=== PATIENT | female | born 2000 | race Caucasian/White ===

== ENCOUNTER → 2023-07-23 | Outpatient (REF) | payer OTHER | LOC: M SFHCCLAY 10:10 | PROVIDERS: ATTEND Nurse Practitioner Family | DX: E03.9 Hypothyroidism, unspecified (principal); I67.1 Cerebral aneurysm, nonruptured ==

== ENCOUNTER → 2024-10-03 | Outpatient (REF) | payer BC ==
[2024-10-03 17:21] LABS: ALT/SGPT 22 U/L (7.0-40); AST/SGOT 16 U/L (<34); CALCIUM LEVEL 8.9 MG/DL (8.5-10.1); CARBON DIOXIDE LEVEL 24 MMOL/L (20-31); CHLORIDE LEVEL 104 MMOL/L (98-107); CHOLESTEROL LEVEL 233 MG/DL (<200); CHOLESTEROL RISK RATIO 3.14 (<5); CREATININE FOR GFR 0.81 MG/DL (0.55-1.30); GLOMERULAR FILTRATION RATE > 90.0 (>60); LDL CHOLESTEROL 129.8 MG/DL (<100); NON-HDL-C 159.0 MG/DL; POTASSIUM SERUM 3.8 MMOL/L (3.5-5.1); SODIUM LEVEL 141 MMOL/L (136-145); TRIGLYCERIDES LEVEL 146 MG/DL (<150)
[2024-10-03 17:22] LABS: BASO # 0.0 10^3/uL (0.0-0.2); BASO % 0.3 % (0.0-1.0); EOS # 0.1 10^3/uL (0.0-0.5); EOS % 0.5 % (0.0-3.0); LYMPH # 3.3 10^3/uL (1.5-5.0); LYMPH % 31.6 % (24.0-44.0); MONO # 0.7 10^3/uL (0.0-0.8); MONO % 6.8 % (2.0-8.0); NEUTROPHILS # 6.3 10^3/uL (1.5-8.5); NEUTROPHILS % 60.3 % (36.0-66.0); PLATELET COUNT, AUTOMATED 338 10^3/uL (150-450)
[2024-10-03 17:24] LABS: FREE T4 1.27 NG/DL (0.89-1.76)
[2024-10-03 17:35] LABS: ESTIMATED AVERAGE GLUCOSE 103.0 MG/DL (60-110)
== END ==
LOC: M SFHCCLAY 14:06
PROVIDERS: ATTEND Nurse Practitioner Family
DX: Z00.00 Encounter for general adult medical examination without abnormal findings (principal); E03.9 Hypothyroidism, unspecified; I67.1 Cerebral aneurysm, nonruptured

== ENCOUNTER → 2025-02-09 | Outpatient (REF) | payer BC | LOC: M SFHCCLAY 14:58 | PROVIDERS: ATTEND Physician Assistant | DX: R30.0 Dysuria (principal) ==